=== PATIENT | female | born 1960 | race Caucasian/White ===

== ENCOUNTER 2016-03-26 06:55 | Day surgery (SDC) | payer BC ==
[~2016-03-26 06:55] MED LIST: ACETAMINOPHEN 1000MG/100 ML PREMIX IV ONE
[2016-03-26] MEDS ORDERED: ACETAMINOPHEN/CODEINE TABLET PO ONE (12:08)
[2016-03-26] MEDS ORDERED: PROPOFOL 10 MG/ML VIAL IV ONE (13:46)
[2016-03-26] MEDS ORDERED: LIDOCAINE 2% MDV (20MG/ML) 20ML VIAL IV ONE (13:46)
[2016-03-26] MEDS ORDERED: MEPERIDINE 50 MG/1 ML VIAL IVP ONE (13:46)
[2016-03-26] MEDS ORDERED: KETOROLAC 30 MG/ML VIAL IVP ONE (13:46)
[2016-03-26] MEDS ORDERED: SEVOFLURANE 250 ML INH ONE (13:46)
[2016-03-26] MEDS ORDERED: MIDAZOLAM HCL 2MG/2ML VIAL IV ONE (13:46)
--- NOTE | 2016-03-26 15:48 | Operative Note ---
DATE OF SURGERY: 03/26/16 PREOPERATIVE DIAGNOSES: 1. CARPAL TUNNEL SYNDROME OF THE LEFT WRIST. 2. TRIGGER FINGER, LEFT MIDDLE FINGER. POSTOPERATIVE DIAGNOSES: 1. CARPAL TUNNEL SYNDROME OF THE LEFT WRIST. 2. TRIGGER FINGER, LEFT MIDDLE FINGER. OPERATIVE PROCEDURES: 1. DECOMPRESSION LEFT MEDIAN NERVE OF THE WRIST USING 3.5 LOOP MAGNIFICATION. 2. TENOTOMY, ONE FLORINDA, LEFT MIDDLE FINGER. SURGEON: NAVNEET CROOK D.O. REFERRING PHYSICIAN: YOHAN DICKINSON D.O. DESCRIPTION: This 55-year-old female was taken to the Operating Room and placed in the supine position on the operating room table. General anesthesia was induced and the left upper extremity was elevated. It was prepped with Hibiclens and draped in the usual sterile fashion. It was exsanguinated and the tourniquet inflated to 250 mmHg. An incision was made overlying the A1 florinda in the palm overlying the head of the third metacarpal in the left palm. Dissection was carried down to the skin and subcutaneous tissue and hemostasis was obtained with the electrocautery. The edge of the A1 florinda was easily identified and it was split from its proximal to its distal margin under direct vision and the patient's sublimis tendon was easily identified. There was some disruption of the fibers of the tendon superficially. They were parallel to the fibers but no transverse lacerations in the tendon were identified. The irritated tendon was completely decompressed and the finger was taken through range of motion with no impingement of the tendon. No locking was then identified. The wound was irrigated with lactated Ringer solution and again hemostasis obtained with the electrocautery and the wound closed with interrupted 6-0 nylon suture. We then directed our attention to the proximal palm. An incision was made from the level of the base of the webspace of the thumb to the flexor crease of the wrist along the hypothenar crease. Dissection was carried down through the skin and subcutaneous tissue. Hemostasis was obtained with the electrocautery. The palmar fascia was divided inline with the skin incision. The flexor retinaculum was identified,punctured, and split to its proximal margin under direct vision then the transverse carpal ligament was transected along its ulnar border and the radial flap was raised to expose the entire median nerve under the transverse carpal ligament and the recurrent motor branch of the median nerve was identified and found to be intact. The nerve itself appeared to be grossly normal. The wound was irrigated and hemostasis obtained with the electrocautery and the wound closed with interrupted 6-0 nylon suture after the tourniquet had been released and hemostasis obtained. Sterile dressings were applied with the wrist in slight dorsal flexion and the thumb in an adducted position. GROSS PATHOLOGY: This patient demonstrated some disruption of the sublimis tendon to the left middle finger with some separation of its fiber and irritation of the tendon fibers but no transection of the fibers was identified. The patient's median nerve appeared to be grossly normal under direct vision with the naked eye. Navneet Crook D.O. Date & Time cc: Yohan Dickinson D.O. JOB NUMBER: [id number] MTDD
== END 2016-03-26 09:25 | disposition home or self-care (01) ==
LOC: SUR 06:55
PROVIDERS: ATTEND Orthopaedic Surgery
DX: G56.02 Carpal tunnel syndrome, left upper limb (principal); M65.332 Trigger finger, left middle finger; I10 Essential (primary) hypertension
CPT/HCPCS: 84132; 64721; 26055; 01810; J1885